=== PATIENT | female | born 1955 | race American Indian/Alaskan Native ===

== ENCOUNTER 2018-07-22 17:17 | Inpatient (IN) | payer SELFPAY ==
--- NOTE | 2018-07-22 18:24 | Emergency Department Report ---
HPI - General Chief Complaint: Syncope Time Seen by Provider: 07/22/18 18:12 - HPI HPI: This is a 63-year-old -[place] female who presents to the ED with the chief complaint of syncope. Patient states about an hour ago she was eating dinner and that was the last thing she remembered. Family member states she passed out, and remained unconscious from 30 seconds to a minute, but no loss of bowel or urine, no focal or generalized seizure activity. When patient returned to consciousness she denied any presyncopal palpitations, chest pain, shortness of breath, dizziness. She is back to her baseline. ED Past Medical Hx - Past Medical History Hx Hypertension: Yes Hx Seizures: Yes - Surgical History Past Surgical History?: No - Medications Home Medications: Home Medications Medication Instructions Recorded Confirmed Last Taken Type Aspirin EC [Aspirin Enteric Coated 81 mg PO QDAY 07/22/18 07/22/18 Unknown History TAB] ED Review of Systems ROS: Stated complaint: UNRESPONSIVE EPISODE Other details as noted in HPI Comment: All other systems reviewed and negative Constitutional: denies: chills, fever Eyes: denies: eye pain, eye discharge, vision change ENT: denies: ear pain, throat pain Respiratory: denies: cough, shortness of breath, wheezing Cardiovascular: denies: chest pain, palpitations Endocrine: no symptoms reported Gastrointestinal: denies: abdominal pain, nausea, diarrhea Genitourinary: denies: urgency, dysuria, discharge Musculoskeletal: denies: back pain, joint swelling, arthralgia Skin: denies: rash, lesions Neurological: other (syncope). denies: headache, weakness, paresthesias Psychiatric: denies: anxiety, depression Hematological/Lymphatic: denies: easy bleeding, easy bruising Physical Exam - Physical Exam Vital Signs: Vital Signs 07/22/18 17:57 Temperature 98.5 F Pulse Rate 82 Respiratory 20 Rate Blood Pressure 149/74 [Right] Physical Exam: - General Limitations: No Limitations General appearance: alert, in no apparent distress - Head Head exam: Present: atraumatic, normocephalic - Eye Eye exam: Present: normal appearance - ENT ENT exam: Present: mucous membranes moist - Neck Neck exam: Present: normal inspection - Respiratory Respiratory exam: Present: normal lung sounds bilaterally. Absent: respiratory distress - Cardiovascular Cardiovascular Exam: Present: regular rate, normal rhythm. Absent: systolic murmur, diastolic murmur, rubs, gallop - GI/Abdominal GI/Abdominal exam: Present: soft, normal bowel sounds - Extremities Exam Extremities exam: Present: normal inspection - Back Exam Back exam: Present: normal inspection - Neurological Exam Neurological exam: Present: alert, oriented X3 - Psychiatric Psychiatric exam: Present: normal affect, normal mood - Skin Skin exam: Present: warm, dry, intact, normal color. Absent: rash ED Course Vital Signs 07/22/18 17:57 Temperature 98.5 F Pulse Rate 82 Respiratory 20 Rate Blood Pressure 149/74 [Right] ED Medical Decision Making - Lab Data Result diagrams: 07/22/18 18:08 07/22/18 18:08 - Medical Decision Making She will be admitted for observation for syncope Critical care attestation.: If time is entered above; I have spent that time in minutes in the direct care of this critically ill patient, excluding procedure time. ED Disposition Clinical Impression: Syncope and collapse Disposition: DC-09 OP ADMIT IP TO THIS HOSP Is pt being admited?: Yes Does the pt Need Aspirin: No Condition: Stable
[2018-07-22 18:35] LABS: INR 0.99 (0.87-1.13)
[2018-07-22 18:39] LABS: Creatine Kinase MB 23.3 ng/mL (0.0-4.0)
[2018-07-22 18:43] LABS: Hemoglobin 14.8 gm/dl (10.1-14.3); Mean Corpuscular HGB Conc 35 % (30-34); Mean Corpuscular Volume 95 fl (79-97); Platelet Count 301 K/mm3 (140-440); Red Blood Count 4.53 M/mm3 (3.65-5.03); Red Cell Distribution Width 13.8 % (13.2-15.2)
[2018-07-22 18:50] LABS: Alanine Aminotransferase 43 units/L (7-56); BUN/Creatinine Ratio 16; Blood Urea Nitrogen 13 mg/dL (7-17); Calcium 8.8 mg/dL (8.4-10.2); Hemolysis Index 13
[2018-07-22 19:36] LABS: Total Cells Counted 100
[2018-07-22 19:37] LABS: Ovalocytes Few
--- NOTE | 2018-07-22 19:58 | Cat Scan Report ---
PROCEDURE: CT HEAD/BRAIN WO CON TECHNIQUE: CT head without contrast HISTORY: Syncope COMPARISONS: FINDINGS: There is patchy hypodensity in the supratentorial white matter most consistent with chronic small ves linda ischemic change. Ventricles and sulci are within normal limits. No acute intra or extra-axial hem orrhage identified. No evidence for midline shift or mass effect. IMPRESSION: Chronic small vessel ischemic changes Otherwise negative study.. This document is electronically signed by Zion Page MD., July 22 2018 07:56:13 PM ET
[2018-07-22 20:25] LABS: Bilirubin,Urine NEG (Negative); Blood,Urine NEG (Negative); Color,Urine Yellow (Yellow); Mucus,Urine FEW /HPF; Protein,Urine <15 mg/dL mg/dL (Negative); Urobilinogen,Urine < 2.0 mg/dL (<2.0); WBC,Urine < 1.0 /HPF (0.0-6.0)
[2018-07-22 20:33] LABS: Amphetamine Screen,Urine PRESUMPTIVE NEGATIVE; Benzodiazepines Screen,Urine PRESUMPTIVE NEGATIVE; Cannabinoid Screen,Urine PRESUMPTIVE NEGATIVE; Methadone Screen,Urine PRESUMPTIVE NEGATIVE; Opiate Screen,Urine PRESUMPTIVE NEGATIVE
[2018-07-22 20:44] LABS: Cocaine Screen,Urine PRESUMPTIVE POSITIVE
[2018-07-22] MEDS ORDERED: TYLENOL PO PRN (22:16)
[2018-07-22] MEDS ORDERED: SODIUM CHLORIDE FLUSH SYRINGE 10 ML IV PRN ×2 (22:16→22:43)
[2018-07-22] MEDS ORDERED: ZOFRAN IV PRN (22:16)
--- NOTE | 2018-07-22 22:23 | History and Physical Report ---
<BENJI GRAHAM - Last Filed: 07/23/18 01:25> History of Present Illness Date of examination: 07/22/18 Date of admission: 02/02/2019 Chief complaint: Syncope History of present illness: Patient is a 63-year-old female with PMHx of HTN, HIV who presents to the ER with complaint of syncope. Patient states that she was in the mild to her friend's house, when her vitamins and gave her some knee she took the first night and became unresponsive, her friends tried to wake her up, applied cold border on her face, she was still, her friend called EMS. Patient states that she had the same episode in August last year. Per EMS patient was unresponsive for about 10 minutes prior to coming to the. Patient denies any report of bowel and bladder incontinence, she denied any seizure activities, denied headache, denied or disorientation or confusion. Patient denies history of heart disease or neurological disorder, denies palpitations, denies chest pain, denies shortness of breath, denies dizziness. Pt was awake alert and oriented in the ER upon admission. Past History Past Medical History: HIV/AIDS, hypertension Past Surgical History: No surgical history Social history: no significant social history Medications and Allergies Allergies Allergy/AdvReac Type Severity Reaction Status Date / Time No Known Allergies Allergy Unverified 07/22/18 17:39 Home Medications Medication Instructions Recorded Confirmed Last Taken Type Aspirin EC [Aspirin Enteric Coated 81 mg PO QDAY 07/22/18 07/22/18 Unknown History TAB] Active Meds: Active Medications Acetaminophen (Tylenol) 650 mg PO Q4H PRN PRN Reason: Pain MILD(1-3)/Fever >100.5/CAMPUZANO Ondansetron HCl (Zofran) 4 mg IV Q8H PRN PRN Reason: Nausea And Vomiting Sodium Chloride (Sodium Chloride Flush Syringe 10 Ml) 10 ml IV BID JEF Sodium Chloride (Sodium Chloride Flush Syringe 10 Ml) 10 ml IV PRN PRN PRN Reason: LINE FLUSH Exam - Constitutional Vitals: Temp Pulse Resp BP Pulse Ox 98.2 F 82 20 149/74 07/22/18 18:33 07/22/18 17:57 07/22/18 17:57 07/22/18 17:57 General appearance: Present: no acute distress - EENT Eyes: Present: EOM intact ENT: hearing intact - Neck Neck: Present: normal ROM - Respiratory Respiratory effort: normal Respiratory: bilateral: CTA - Cardiovascular Rhythm: regular - Extremities Extremities: no ischemia Peripheral Pulses: within normal limits - Abdominal General gastrointestinal: Present: soft, non-tender, non-distended Female genitourinary: Present: deferred - Rectal Rectal Exam: deferred - Integumentary Integumentary: Present: warm, dry - Musculoskeletal Musculoskeletal: strength equal bilaterally - Psychiatric Psychiatric: cooperative - Neurologic Neurologic: moves all extremities Results - Labs CBC & Chem 7: 07/22/18 23:31 07/22/18 23:31 Labs: Laboratory Last Values WBC 9.7 K/mm3 (4.5-11.0) 07/22/18 18:08 RBC 4.53 M/mm3 (3.65-5.03) 07/22/18 18:08 Hgb 14.8 gm/dl (10.1-14.3) H 07/22/18 18:08 Hct 43.0 % (30.3-42.9) H 07/22/18 18:08 MCV 95 fl (79-97) 07/22/18 18:08 MCH 33 pg (28-32) H 07/22/18 18:08 MCHC 35 % (30-34) H 07/22/18 18:08 RDW 13.8 % (13.2-15.2) 07/22/18 18:08 Plt Count 301 K/mm3 (140-440) 07/22/18 18:08 Add Manual Diff Complete 07/22/18 18:08 Total Counted 100 07/22/18 18:08 Seg Neuts % (Manual) 79.0 % (40.0-70.0) H 07/22/18 18:08 Band Neutrophils % 0 % 07/22/18 18:08 Lymphocytes % (Manual) 12.0 % (13.4-35.0) L 07/22/18 18:08 Reactive Lymphs % (Man) 0 % 07/22/18 18:08 Monocytes % (Manual) 7.0 % (0.0-7.3) 07/22/18 18:08 Eosinophils % (Manual) 1.0 % (0.0-4.3) 07/22/18 18:08 Basophils % (Manual) 1.0 % (0.0-1.8) 07/22/18 18:08 Metamyelocytes % 0 % 07/22/18 18:08 Myelocytes % 0 % 07/22/18 18:08 Promyelocytes % 0 % 07/22/18 18:08 Blast Cells % 0 % 07/22/18 18:08 Nucleated RBC % Not Reportable 07/22/18 18:08 Seg Neutrophils # Man 7.7 K/mm3 (1.8-7.7) 07/22/18 18:08 Band Neutrophils # 0.0 K/mm3 07/22/18 18:08 Lymphocytes # (Manual) 1.2 K/mm3 (1.2-5.4) 07/22/18 18:08 Abs React Lymphs (Man) 0.0 K/mm3 07/22/18 18:08 Monocytes # (Manual) 0.7 K/mm3 (0.0-0.8) 07/22/18 18:08 Eosinophils # (Manual) 0.1 K/mm3 (0.0-0.4) 07/22/18 18:08 Basophils # (Manual) 0.1 K/mm3 (0.0-0.1) 07/22/18 18:08 Metamyelocytes # 0.0 K/mm3 07/22/18 18:08 Myelocytes # 0.0 K/mm3 07/22/18 18:08 Promyelocytes # 0.0 K/mm3 07/22/18 18:08 Blast Cells # 0.0 K/mm3 07/22/18 18:08 WBC Morphology Not Reportable 07/22/18 18:08 Hypersegmented Neuts Not Reportable 07/22/18 18:08 Hyposegmented Neuts Not Reportable 07/22/18 18:08 Hypogranular Neuts Not Reportable 07/22/18 18:08 Smudge Cells Not Reportable 07/22/18 18:08 Toxic Granulation Not Reportable 07/22/18 18:08 Toxic Vacuolation Not Reportable 07/22/18 18:08 Dohle Bodies Not Reportable 07/22/18 18:08 Pelger-Huet Anomaly Not Reportable 07/22/18 18:08 Teofilo Rods Not Reportable 07/22/18 18:08 Platelet Estimate Appears normal 07/22/18 18:08 Clumped Platelets Not Reportable 07/22/18 18:08 Plt Clumps, EDTA Not Reportable 07/22/18 18:08 Large Platelets Not Reportable 07/22/18 18:08 Giant Platelets Not Reportable 07/22/18 18:08 Platelet Satelliting Not Reportable 07/22/18 18:08 Plt Morphology Comment Not Reportable 07/22/18 18:08 RBC Morphology Not Reportable 07/22/18 18:08 Dimorphic RBCs Not Reportable 07/22/18 18:08 Polychromasia Not Reportable 07/22/18 18:08 Hypochromasia Not Reportable 07/22/18 18:08 Poikilocytosis Not Reportable 07/22/18 18:08 Anisocytosis Not Reportable 07/22/18 18:08 Microcytosis Not Reportable 07/22/18 18:08 Macrocytosis Not Reportable 07/22/18 18:08 Spherocytes Not Reportable 07/22/18 18:08 Pappenheimer Bodies Not Reportable 07/22/18 18:08 Sickle Cells Not Reportable 07/22/18 18:08 Target Cells Not Reportable 07/22/18 18:08 Tear Drop Cells Not Reportable 07/22/18 18:08 Ovalocytes Few 07/22/18 18:08 Helmet Cells Not Reportable 07/22/18 18:08 [place] Bodies Not Reportable 07/22/18 18:08 [place] Rings Not Reportable 07/22/18 18:08 Rita Cells Not Reportable 07/22/18 18:08 Bite Cells Not Reportable 07/22/18 18:08 Crenated Cell Not Reportable 07/22/18 18:08 Elliptocytes Not Reportable 07/22/18 18:08 Acanthocytes (Spur) Not Reportable 07/22/18 18:08 Rouleaux Not Reportable 07/22/18 18:08 Hemoglobin C Crystals Not Reportable 07/22/18 18:08 Schistocytes Not Reportable 07/22/18 18:08 Malaria parasites Not Reportable 07/22/18 18:08 Ramírez Bodies Not Reportable 07/22/18 18:08 Hem Pathologist Commnt No 07/22/18 18:08 PT 13.7 Sec. (12.2-14.9) 07/22/18 18:08 INR 0.99 (0.87-1.13) 07/22/18 18:08 Sodium 133 mmol/L (137-145) L 07/22/18 18:08 Potassium 3.8 mmol/L (3.6-5.0) 07/22/18 18:08 Chloride 93.4 mmol/L (98-107) L 07/22/18 18:08 Carbon Dioxide 22 mmol/L (22-30) 07/22/18 18:08 Anion Gap 21 mmol/L 07/22/18 18:08 BUN 13 mg/dL (7-17) 07/22/18 18:08 Creatinine 0.8 mg/dL (0.7-1.2) 07/22/18 18:08 Estimated GFR > 60 ml/min 07/22/18 18:08 BUN/Creatinine Ratio 16 % 07/22/18 18:08 Glucose 107 mg/dL (65-100) H 07/22/18 18:08 POC Glucose 89 (70-105) 07/22/18 18:10 Calcium 8.8 mg/dL (8.4-10.2) 07/22/18 18:08 Magnesium 2.00 mg/dL (1.7-2.3) 07/22/18 18:08 Total Bilirubin 1.00 mg/dL (0.1-1.2) 07/22/18 18:08 AST 142 units/L (5-40) H 07/22/18 18:08 ALT 43 units/L (7-56) 07/22/18 18:08 Alkaline Phosphatase 95 units/L (35-129) 07/22/18 18:08 Total Creatine Kinase 5316 units/L (30-135) H 07/22/18 18:08 CK-MB (CK-2) 23.3 ng/mL (0.0-4.0) H 07/22/18 18:08 CK-MB (CK-2) Rel Index 0.4 (0-4) 07/22/18 18:08 Troponin T < 0.010 ng/mL (0.00-0.029) 07/22/18 18:08 NT-Pro-B Natriuret Pep 410.7 pg/mL (0-900) 07/22/18 20:48 Total Protein 7.3 g/dL (6.3-8.2) 07/22/18 18:08 Albumin 4.0 g/dL (3.9-5) 07/22/18 18:08 Albumin/Globulin Ratio 1.2 % 07/22/18 18:08 Urine Color Yellow (Yellow) 07/22/18 20:09 Urine Turbidity Clear (Clear) 07/22/18 20:09 Urine pH 5.0 (5.0-7.0) 07/22/18 20:09 Ur Specific [place] 1.005 (1.003-1.030) 07/22/18 20:09 Urine Protein <15 mg/dl mg/dL (Negative) 07/22/18 20:09 Urine Glucose (UA) Neg mg/dL (Negative) 07/22/18 20:09 Urine Ketones Tr mg/dL (Negative) 07/22/18 20:09 Urine Blood Neg (Negative) 07/22/18 20:09 Urine Nitrite Neg (Negative) 07/22/18 20:09 Urine Bilirubin Neg (Negative) 07/22/18 20:09 Urine Urobilinogen < 2.0 mg/dL (<2.0) 07/22/18 20:09 Ur Leukocyte Esterase Neg (Negative) 07/22/18 20:09 Urine WBC (Auto) < 1.0 /HPF (0.0-6.0) 07/22/18 20:09 Urine RBC (Auto) 2.0 /HPF (0.0-6.0) 07/22/18 20:09 U Epithel Cells (Auto) < 1.0 /HPF (0-13.0) 07/22/18 20:09 Urine Mucus Few /HPF 07/22/18 20:09 Urine Opiates Screen Presumptive negative 07/22/18 20:09 Urine Methadone Screen Presumptive negative 07/22/18 20:09 Ur Barbiturates Screen Presumptive negative 07/22/18 20:09 Ur Phencyclidine Scrn Presumptive negative 07/22/18 20:09 Ur Amphetamines Screen Presumptive negative 07/22/18 20:09 U Benzodiazepines Scrn Presumptive negative 07/22/18 20:09 Urine Cocaine Screen Presumptive positive 07/22/18 20:09 U Marijuana (THC) Screen Presumptive negative 07/22/18 20:09 Drugs of Abuse Note Disclamer 07/22/18 20:09 Plasma/Serum Alcohol < 0.01 % (0-0.07) 07/22/18 18:08 Assessment and Plan Assessment and plan: 1. Acute syncopal episode 2. Hypertension 3. HIV infection (On HAART) Plan: Admit to [facility] Monitor neurologic status Continue cardiac enzymes every 6 hours 2 Consult cardiology for syncope Echocardiogram in the a.m. Resume home medications Advance Directives: Yes VTE prophylaxis?: Mechanical Plan of care discussed with patient/family: Yes <JONE CASAS - Last Filed: 07/23/18 01:36> History of Present Illness Date of admission: 07/22/18 22:16 Medications and Allergies Active Meds: Active Medications Acetaminophen (Tylenol) 650 mg PO Q4H PRN PRN Reason: Pain MILD(1-3)/Fever >100.5/CAMPUZANO Aspirin (Ecotrin) 325 mg PO QDAY JEF Enoxaparin Sodium (Lovenox) 30 mg SUB-Q QDAY JEF Ondansetron HCl (Zofran) 4 mg IV Q8H PRN PRN Reason: Nausea And Vomiting Sodium Chloride (Sodium Chloride Flush Syringe 10 Ml) 10 ml IV BID JEF Sodium Chloride (Sodium Chloride Flush Syringe 10 Ml) 10 ml IV PRN PRN PRN Reason: LINE FLUSH Exam - Constitutional Vitals: Temp Pulse Resp BP Pulse Ox 98.2 F 79 19 112/68 07/22/18 18:33 07/22/18 21:00 07/22/18 21:00 07/22/18 21:00 Results - Labs CBC & Chem 7: 07/22/18 23:31 07/22/18 23:31 Labs: Laboratory Last Values WBC 9.9 K/mm3 (4.5-11.0) 07/22/18 23:31 RBC 4.24 M/mm3 (3.65-5.03) 07/22/18 23:31 Hgb 13.9 gm/dl (10.1-14.3) 07/22/18 23:31 Hct 40.0 % (30.3-42.9) 07/22/18 23:31 MCV 94 fl (79-97) 07/22/18 23:31 MCH 33 pg (28-32) H 07/22/18 23:31 MCHC 35 % (30-34) H 07/22/18 23:31 RDW 13.6 % (13.2-15.2) 07/22/18 23:31 Plt Count 282 K/mm3 (140-440) 07/22/18 23:31 Add Manual Diff Complete 07/22/18 18:08 Total Counted 100 07/22/18 18:08 Seg Neuts % (Manual) 79.0 % (40.0-70.0) H 07/22/18 18:08 Band Neutrophils % 0 % 07/22/18 18:08 Lymphocytes % (Manual) 12.0 % (13.4-35.0) L 07/22/18 18:08 Reactive Lymphs % (Man) 0 % 07/22/18 18:08 Monocytes % (Manual) 7.0 % (0.0-7.3) 07/22/18 18:08 Eosinophils % (Manual) 1.0 % (0.0-4.3) 07/22/18 18:08 Basophils % (Manual) 1.0 % (0.0-1.8) 07/22/18 18:08 Metamyelocytes % 0 % 07/22/18 18:08 Myelocytes % 0 % 07/22/18 18:08 Promyelocytes % 0 % 07/22/18 18:08 Blast Cells % 0 % 07/22/18 18:08 Nucleated RBC % Not Reportable 07/22/18 18:08 Seg Neutrophils # Man 7.7 K/mm3 (1.8-7.7) 07/22/18 18:08 Band Neutrophils # 0.0 K/mm3 07/22/18 18:08 Lymphocytes # (Manual) 1.2 K/mm3 (1.2-5.4) 07/22/18 18:08 Abs React Lymphs (Man) 0.0 K/mm3 07/22/18 18:08 Monocytes # (Manual) 0.7 K/mm3 (0.0-0.8) 07/22/18 18:08 Eosinophils # (Manual) 0.1 K/mm3 (0.0-0.4) 07/22/18 18:08 Basophils # (Manual) 0.1 K/mm3 (0.0-0.1) 07/22/18 18:08 Metamyelocytes # 0.0 K/mm3 07/22/18 18:08 Myelocytes # 0.0 K/mm3 07/22/18 18:08 Promyelocytes # 0.0 K/mm3 07/22/18 18:08 Blast Cells # 0.0 K/mm3 07/22/18 18:08 WBC Morphology Not Reportable 07/22/18 18:08 Hypersegmented Neuts Not Reportable 07/22/18 18:08 Hyposegmented Neuts Not Reportable 07/22/18 18:08 Hypogranular Neuts Not Reportable 07/22/18 18:08 Smudge Cells Not Reportable 07/22/18 18:08 Toxic Granulation Not Reportable 07/22/18 18:08 Toxic Vacuolation Not Reportable 07/22/18 18:08 Dohle Bodies Not Reportable 07/22/18 18:08 Pelger-Huet Anomaly Not Reportable 07/22/18 18:08 Teofilo Rods Not Reportable 07/22/18 18:08 Platelet Estimate Appears normal 07/22/18 18:08 Clumped Platelets Not Reportable 07/22/18 18:08 Plt Clumps, EDTA Not Reportable 07/22/18 18:08 Large Platelets Not Reportable 07/22/18 18:08 Giant Platelets Not Reportable 07/22/18 18:08 Platelet Satelliting Not Reportable 07/22/18 18:08 Plt Morphology Comment Not Reportable 07/22/18 18:08 RBC Morphology Not Reportable 07/22/18 18:08 Dimorphic RBCs Not Reportable 07/22/18 18:08 Polychromasia Not Reportable 07/22/18 18:08 Hypochromasia Not Reportable 07/22/18 18:08 Poikilocytosis Not Reportable 07/22/18 18:08 Anisocytosis Not Reportable 07/22/18 18:08 Microcytosis Not Reportable 07/22/18 18:08 Macrocytosis Not Reportable 07/22/18 18:08 Spherocytes Not Reportable 07/22/18 18:08 Pappenheimer Bodies Not Reportable 07/22/18 18:08 Sickle Cells Not Reportable 07/22/18 18:08 Target Cells Not Reportable 07/22/18 18:08 Tear Drop Cells Not Reportable 07/22/18 18:08 Ovalocytes Few 07/22/18 18:08 Helmet Cells Not Reportable 07/22/18 18:08 [place] Bodies Not Reportable 07/22/18 18:08 [place] Rings Not Reportable 07/22/18 18:08 [place] Cells Not Reportable 07/22/18 18:08 Bite Cells Not Reportable 07/22/18 18:08 Crenated Cell Not Reportable 07/22/18 18:08 Elliptocytes Not Reportable 07/22/18 18:08 Acanthocytes (Spur) Not Reportable 07/22/18 18:08 Rouleaux Not Reportable 07/22/18 18:08 Hemoglobin C Crystals Not Reportable 07/22/18 18:08 Schistocytes Not Reportable 07/22/18 18:08 Malaria parasites Not Reportable 07/22/18 18:08 Ramírez Bodies Not Reportable 07/22/18 18:08 Hem Pathologist Commnt No 07/22/18 18:08 PT 13.7 Sec. (12.2-14.9) 07/22/18 18:08 INR 0.99 (0.87-1.13) 07/22/18 18:08 Sodium 135 mmol/L (137-145) L 07/22/18 23:31 Potassium 3.8 mmol/L (3.6-5.0) 07/22/18 23:31 Chloride 97.7 mmol/L (98-107) L 07/22/18 23:31 Carbon Dioxide 25 mmol/L (22-30) 07/22/18 23:31 Anion Gap 16 mmol/L 07/22/18 23:31 BUN 12 mg/dL (7-17) 07/22/18 23:31 Creatinine 0.7 mg/dL (0.7-1.2) 07/22/18 23:31 Estimated GFR > 60 ml/min 07/22/18 23:31 BUN/Creatinine Ratio 17 % 07/22/18 23:31 Glucose 138 mg/dL (65-100) H 07/22/18 23:31 POC Glucose 89 (70-105) 07/22/18 18:10 Calcium 8.8 mg/dL (8.4-10.2) 07/22/18 23:31 Magnesium 2.00 mg/dL (1.7-2.3) 07/22/18 18:08 Total Bilirubin 1.00 mg/dL (0.1-1.2) 07/22/18 18:08 AST 142 units/L (5-40) H 07/22/18 18:08 ALT 43 units/L (7-56) 07/22/18 18:08 Alkaline Phosphatase 95 units/L (35-129) 07/22/18 18:08 Total Creatine Kinase 5316 units/L (30-135) H 07/22/18 18:08 CK-MB (CK-2) 23.3 ng/mL (0.0-4.0) H 07/22/18 18:08 CK-MB (CK-2) Rel Index 0.4 (0-4) 07/22/18 18:08 Troponin T < 0.010 ng/mL (0.00-0.029) 07/22/18 18:08 NT-Pro-B Natriuret Pep 410.7 pg/mL (0-900) 07/22/18 20:48 Total Protein 7.3 g/dL (6.3-8.2) 07/22/18 18:08 Albumin 4.0 g/dL (3.9-5) 07/22/18 18:08 Albumin/Globulin Ratio 1.2 % 07/22/18 18:08 Urine Color Yellow (Yellow) 07/22/18 20:09 Urine Turbidity Clear (Clear) 07/22/18 20:09 Urine pH 5.0 (5.0-7.0) 07/22/18 20:09 Ur Specific [place] 1.005 (1.003-1.030) 07/22/18 20:09 Urine Protein <15 mg/dl mg/dL (Negative) 07/22/18 20:09 Urine Glucose (UA) Neg mg/dL (Negative) 07/22/18 20:09 Urine Ketones Tr mg/dL (Negative) 07/22/18 20:09 Urine Blood Neg (Negative) 07/22/18 20:09 Urine Nitrite Neg (Negative) 07/22/18 20:09 Urine Bilirubin Neg (Negative) 07/22/18 20:09 Urine Urobilinogen < 2.0 mg/dL (<2.0) 07/22/18 20:09 Ur Leukocyte Esterase Neg (Negative) 07/22/18 20:09 Urine WBC (Auto) < 1.0 /HPF (0.0-6.0) 07/22/18 20:09 Urine RBC (Auto) 2.0 /HPF (0.0-6.0) 07/22/18 20:09 U Epithel Cells (Auto) < 1.0 /HPF (0-13.0) 07/22/18 20:09 Urine Mucus Few /HPF 07/22/18 20:09 Urine Opiates Screen Presumptive negative 07/22/18 20:09 Urine Methadone Screen Presumptive negative 07/22/18 20:09 Ur Barbiturates Screen Presumptive negative 07/22/18 20:09 Ur Phencyclidine Scrn Presumptive negative 07/22/18 20:09 Ur Amphetamines Screen Presumptive negative 07/22/18 20:09 U Benzodiazepines Scrn Presumptive negative 07/22/18 20:09 Urine Cocaine Screen Presumptive positive 07/22/18 20:09 U Marijuana (THC) Screen Presumptive negative 07/22/18 20:09 Drugs of Abuse Note Disclamer 07/22/18 20:09 Plasma/Serum Alcohol < 0.01 % (0-0.07) 07/22/18 18:08 Assessment and Plan Assessment and plan: Patient seen and examined with nurse practitioner . 63-year-old woman with a history of hypertension, HIV, on ulcerative for con, similar emergency room because she had a syncopal episode while she was eating at a friend's house. She states she do not know how long she passed out for. She states that several episodes of syncope starting last year, at least 6 episodes, unclear what her workup has been, she cannot recall. Her physical exam is benign. Agree with plan as discussed above, in addition check carotid Doppler, orthostatics, d-dimer
[2018-07-23 00:07] LABS: BUN/Creatinine Ratio 17; Blood Urea Nitrogen 12 mg/dL (7-17); Calcium 8.8 mg/dL (8.4-10.2); Hemolysis Index 7
[2018-07-23 00:24] LABS: Red Cell Distribution Width 13.6 % (13.2-15.2)
[2018-07-23 00:28] LABS: Hemoglobin 13.9 gm/dl (10.1-14.3); Mean Corpuscular HGB Conc 35 % (30-34); Mean Corpuscular Volume 94 fl (79-97); Platelet Count 282 K/mm3 (140-440); Red Blood Count 4.24 M/mm3 (3.65-5.03)
[2018-07-23 01:48] LABS: Basophils % (Manual) 0 % (0.0-1.8); Eosinophils % (Manual) 0 % (0.0-4.3); Total Cells Counted 100
[2018-07-23 01:49] LABS: Platelet Estimate Consistent w Auto; RBC Morphology Normal
[2018-07-23 03:27] LABS: Creatine Kinase MB 14.8 ng/mL (0.0-4.0)
[2018-07-23] MEDS: LOVENOX SUB-Q SCH (10:50)
[2018-07-23] MEDS: SODIUM CHLORIDE FLUSH SYRINGE 10 ML IV SCH ×2 (10:50→22:07)
[2018-07-23] MEDS: ECOTRIN PO SCH (10:50)
[2018-07-23 11:29] LABS: Creatine Kinase MB 12.4 ng/mL (0.0-4.0)
--- NOTE | 2018-07-23 12:36 | Vascular Lab Report ---
PROCEDURE: VL CAROTID DUPLEX BILAT TECHNIQUE: Duplex Doppler ultrasound of the common, internal and external carotid arteries and the v ertebral arteries was performed bilaterally. Porter scale imaging, velocity spectral waveform analysis, and color flow Doppler were employed. HISTORY: syncope COMPARISONS: None . Note: Measurement of carotid stenosis is based on flow velocity values that correlate with the [place] Symptomatic Carotid Endarterectomy Trial (NASCET) based stenosis criteria using the internal carotid artery diameter as the denominator for stenosis calculation. FINDINGS: RIGHT carotid artery: Velocities Pamela L Velocities: ICA PSV: 80 cm/sec ICA End diastolic: 21 cm/sec CCA PSV: 91 cm/sec IC/CC ratio: 0.88 Plaque/color flow: Mild heterogeneous plaque without significant spectral broadening or abnormal col or flow . RIGHT vertebral artery: Antegrade systolic and diastolic flow LEFT carotid artery: Velocities: ICA PSV: 99 cm/sec ICA End diastolic: 28 cm/sec CCA PSV: 129 cm/sec IC/CC ratio: 0.7 7 Plaque/color flow: Mild heterogeneous plaque without significant spectral broadening or abnormal col or flow . LEFT vertebral artery: Antegrade systolic and diastolic flow IMPRESSION: 1. RIGHT carotid: No hemodynamically significant (less than 50 percent) internal carotid artery kimani nosis. 2. LEFT carotid: No hemodynamically significant (less than 50 percent) internal carotid artery sten osis. 3. Vertebral arteries: Bilaterally antegrade. This document is electronically signed by Wolfgang Kirkland MD., July 23 2018 12:34:44 PM ET
--- NOTE | 2018-07-23 12:38 | Consultation ---
History of Present Illness Consult date: 07/23/18 Requesting physician: BENJI GRAHAM Consult reason: syncope History of present illness: Over the past one year, she has been experiencing recurrent episodes of loss of consciousness without premonitory symptoms. She claims that she has had a total of 7 episodes since onset. Yesterday, while attending a barbecue at her friend's place, without any warning signs, she suddenly lost consciousness. She does not recall any details of the event. She first started arousing when she was in the ambulance. Upon arousal, she had no symptoms of palpitations, dyspnea, chest pain, or dizziness. She claims that each episode is accompanied by urinary incontinence with a similar pattern as yesterday. There is no descr iption of tonic-clonic movements. She claims that she has not had any prior evaluation for these events. She believes that she was brought to the hospital yesterday because the duration of LOC was somewhat longer. Brain CT scan showed no acute findings. D-Dimer is elevated. Past History Past Medical History: HIV/AIDS, hypertension Past Surgical History: No surgical history Social history: smoking, other (Drinks alcohol occasionally.) Family history: denies: CAD Medications and Allergies Allergies Allergy/AdvReac Type Severity Reaction Status Date / Time No Known Allergies Allergy Unverified 07/22/18 17:39 Home Medications Medication Instructions Recorded Confirmed Last Taken Type Aspirin EC [Aspirin Enteric Coated 81 mg PO QDAY 07/22/18 07/22/18 Unknown History TAB] Active Meds: Active Medications Acetaminophen (Tylenol) 650 mg PO Q4H PRN PRN Reason: Pain MILD(1-3)/Fever >100.5/CAMPUZANO Aspirin (Ecotrin) 325 mg PO QDAY [facility] Last Admin: 07/23/18 10:50 Dose: 325 mg Documented by: Enoxaparin Sodium (Lovenox) 40 mg SUB-Q QDAY [facility] Last Admin: 07/23/18 10:50 Dose: 40 mg Documented by: Ondansetron HCl (Zofran) 4 mg IV Q8H PRN PRN Reason: Nausea And Vomiting Sodium Chloride (Sodium Chloride Flush Syringe 10 Ml) 10 ml IV BID [facility] Last Admin: 07/23/18 10:50 Dose: 10 ml Documented by: Sodium Chloride (Sodium Chloride Flush Syringe 10 Ml) 10 ml IV PRN PRN PRN Reason: LINE FLUSH Review of Systems Constitutional: no fever, no chills Ears, nose, mouth and throat: no ear pain, no ear discharge, no sore throat Cardiovascular: syncope, no chest pain, no orthopnea, no palpitations, no lightheadedness, no shortness of breath Respiratory: no cough, no hemoptysis, no shortness of breath Gastrointestinal: no abdominal pain, no nausea, no vomiting, no diarrhea, no constipation, no change in bowel habits Genitourinary Female: no dysuria, no urinary frequency Rectal: no pain, no bleeding Musculoskeletal: no neck stiffness, no neck pain, no myalgias Integumentary: no rash, no pruritis Neurological: no paralysis, no weakness, no headaches Endocrine: no cold intolerance, no heat intolerance Hematologic/Lymphatic: no easy bruising, no easy bleeding Allergic/Immunologic: no urticaria, no wheezing Physical Examination Vital Signs Last Vital Signs Temp 98.6 F 07/23/18 08:42 Pulse 67 07/23/18 10:00 Resp 18 07/23/18 10:00 BP 146/68 07/23/18 08:42 Pulse Ox 98 07/23/18 10:00 General appearance: no acute distress HEENT: Positive: EOMI, Normocephaly, Mucus Membranes Moist Neck: Positive: neck supple, trachea midline Cardiac: Positive: Reg Rate and Rhythm, S1/S2 Lungs: Positive: clear to auscultation Neuro: Positive: Grossly Intact Abdomen: Positive: Soft, Active Bowel Sounds. Negative: Tender Skin: Positive: Clear. Negative: Rash Musculoskeletal: Normal Range of Motion Extremities: Present: normal. Absent: edema Results 07/22/18 23:31 07/22/18 23:31 Cardiac Enzymes 07/22/18 07/22/18 07/23/18 Range/Units 18:08 18:08 01:57 AST 142 H (5-40) units/L CK-MB (CK-2) 23.3 H 14.8 H (0.0-4.0) ng/mL 07/23/18 Range/Units 10:19 AST (5-40) units/L CK-MB (CK-2) 12.4 H (0.0-4.0) ng/mL Coagulation 07/22/18 Range/Units 18:08 PT 13.7 (12.2-14.9) Sec. INR 0.99 (0.87-1.13) CBC 07/22/18 07/22/18 Range/Units 18:08 23:31 WBC 9.7 9.9 (4.5-11.0) K/mm3 RBC 4.53 4.24 (3.65-5.03) M/mm3 Hgb 14.8 H 13.9 (10.1-14.3) gm/dl Hct 43.0 H 40.0 (30.3-42.9) % Plt Count 301 282 (140-440) K/mm3 Comprehensive Metabolic Panel 07/22/18 07/22/18 Range/Units 18:08 23:31 Sodium 133 L 135 L (137-145) mmol/L Potassium 3.8 3.8 (3.6-5.0) mmol/L Chloride 93.4 L 97.7 L (98-107) mmol/L Carbon Dioxide 22 25 (22-30) mmol/L BUN 13 12 (7-17) mg/dL Creatinine 0.8 0.7 (0.7-1.2) mg/dL Glucose 107 H 138 H (65-100) mg/dL Calcium 8.8 8.8 (8.4-10.2) mg/dL AST 142 H (5-40) units/L ALT 43 (7-56) units/L Alkaline Phosphatase 95 (35-129) units/L Total Protein 7.3 (6.3-8.2) g/dL Albumin 4.0 (3.9-5) g/dL - Imaging and Cardiology EKG: image reviewed EKG interpretations - Telemetry EKG Rhythm: Sinus Rhythm - EKG Sinus rhythms and dysrhythmias: sinus rhythm Assessment and Plan Obtaining orthostatic parameters. Due to elevated d-dimer, obtain chest CTA. Schedule echocardiogram. If chest CTA is negative, consider Lexiscan stress MPI in am. She will be observed on the monitor for arrhythmias. If cardiac workup is unremarkable, neurologic workup will be considered as outpatient especially with accompanying incontinence described by the patient. Initiate antihypertensive medication. - Patient Problems (1) Recurrent syncope Current Visit: Yes Status: Acute (2) Elevated d-dimer Current Visit: Yes Status: Acute (3) Hypertension Current Visit: Yes Status: Chronic Qualifiers: Hypertension type: essential hypertension Qualified Code(s): I10 - Essential (primary) hypertension (4) HIV disease Current Visit: Yes Status: Chronic
[2018-07-23] MEDS: NORVASC PO SCH (13:59)
--- NOTE | 2018-07-23 17:57 | Progress Note ---
Assessment and Plan Assessment and plan: --Syncope; Patient gives history of recurrent syncopal episodes in the past. No new episodes of syncope since admission, fall precautions Syncope workup in progress, cardiology evaluated, stress test tomorrow Orthostats, physical therapy occupational therapy --Elevated d-dimer is; CTA chest/lower extremity venous Doppler To rule out PE and DVT Continue supportive care --Ongoing tobacco use; smoking cessation nicotine patch as needed --History of alcohol use; strongly advised to quit alcohol intake Monitor for any withdrawal symptoms consider CIWA protocol as needed --DVT prophylaxis; Lovenox Cardiology evaluation and recommendation noted and appreciated Possible discharge in 1-2 days if stable History Interval history: Patient seen and examined medical records reviewed Admitted with syncope, cardiology evaluation noted and appreciated No new episodes of syncope since admission Patient is alert awake oriented Vital signs noted, Elevation of d-dimer check CTA, venous Doppler to rule out PE and DVT Hospitalist Physical - Constitutional Vitals: Temp Pulse Resp BP Pulse Ox 98.9 F 67 16 155/62 97 07/23/18 12:32 07/23/18 13:59 07/23/18 12:32 07/23/18 13:59 07/23/18 12:32 General appearance: Present: no acute distress, well-nourished - EENT Eyes: Present: PERRL, EOM intact - Neck Neck: Present: supple, normal ROM - Respiratory Respiratory effort: normal Respiratory: bilateral: diminished, negative: rales, rhonchi, wheezing - Cardiovascular Rhythm: regular Heart Sounds: Present: S1 & S2 - Extremities Extremities: no ischemia, No edema - Abdominal General gastrointestinal: soft, non-tender, non-distended, normal bowel sounds - Integumentary Integumentary: Present: clear, warm - Psychiatric Psychiatric: appropriate mood/affect, cooperative - Neurologic Neurologic: CNII-XII intact, moves all extremities Results - Labs CBC & Chem 7: 07/22/18 23:31 07/22/18 23:31 Labs: Laboratory Last Values WBC 9.9 K/mm3 (4.5-11.0) 07/22/18 23:31 RBC 4.24 M/mm3 (3.65-5.03) 07/22/18 23:31 Hgb 13.9 gm/dl (10.1-14.3) 07/22/18 23:31 Hct 40.0 % (30.3-42.9) 07/22/18 23: MCV 94 fl (79-97) 07/22/18 23: MCH 33 pg (28-32) H 07/22/18 23: MCHC 35 % (30-34) H 07/22/18 23: RDW 13.6 % (13.2-15.2) 07/22/18 23: Plt Count 282 K/mm3 (140-440) 07/22/18 23: Add Manual Diff Complete 07/22/18 23: Total Counted 100 07/22/18 23: Seg Neuts % (Manual) 67.0 % (40.0-70.0) 07/22/18 23: Band Neutrophils % 0 % 07/22/18 23: Lymphocytes % (Manual) 26.0 % (13.4-35.0) 07/22/18 23: Reactive Lymphs % (Man) 0 % 07/22/18 23: Monocytes % (Manual) 7.0 % (0.0-7.3) 07/22/18 23: Eosinophils % (Manual) 0 % (0.0-4.3) 07/22/18 23: Basophils % (Manual) 0 % (0.0-1.8) 07/22/18 23: Metamyelocytes % 0 % 07/22/18 23: Myelocytes % 0 % 07/22/18 23: Promyelocytes % 0 % 07/22/18 23: Blast Cells % 0 % 07/22/18 23: Nucleated RBC % Not Reportable 07/22/18 23: Seg Neutrophils # Man 6.6 K/mm3 (1.8-7.7) 07/22/18 23: Band Neutrophils # 0.0 K/mm3 07/22/18 23: Lymphocytes # (Manual) 2.6 K/mm3 (1.2-5.4) 07/22/18 23: Abs React Lymphs (Man) 0.0 K/mm3 07/22/18 23: Monocytes # (Manual) 0.7 K/mm3 (0.0-0.8) 07/22/18 23: Eosinophils # (Manual) 0.0 K/mm3 (0.0-0.4) 07/22/18 23:31 Basophils # (Manual) 0.0 K/mm3 (0.0-0.1) 07/22/18 23:31 Metamyelocytes # 0.0 K/mm3 07/22/18 23:31 Myelocytes # 0.0 K/mm3 07/22/18 23:31 Promyelocytes # 0.0 K/mm3 07/22/18 23:31 Blast Cells # 0.0 K/mm3 07/22/18 23:31 WBC Morphology Not Reportable 07/22/18 23:31 Hypersegmented Neuts Not Reportable 07/22/18 23:31 Hyposegmented Neuts Not Reportable 07/22/18 23:31 Hypogranular Neuts Not Reportable 07/22/18 23:31 Smudge Cells Not Reportable 07/22/18 23:31 Toxic Granulation Not Reportable 07/22/18 23:31 Toxic Vacuolation Not Reportable 07/22/18 23:31 Dohle Bodies Not Reportable 07/22/18 23:31 Pelger-Huet Anomaly Not Reportable 07/22/18 23:31 Teofilo Rods Not Reportable 07/22/18 23:31 Platelet Estimate Consistent w auto 07/22/18 23:31 Clumped Platelets Not Reportable 07/22/18 23:31 Plt Clumps, EDTA Not Reportable 07/22/18 23:31 Large Platelets Not Reportable 07/22/18 23:31 Giant Platelets Not Reportable 07/22/18 23:31 Platelet Satelliting Not Reportable 07/22/18 23:31 Plt Morphology Comment Not Reportable 07/22/18 23:31 RBC Morphology Normal 07/22/18 23:31 Dimorphic RBCs Not Reportable 07/22/18 23:31 Polychromasia Not Reportable 07/22/18 23:31 Hypochromasia Not Reportable 07/22/18 23:31 Poikilocytosis Not Reportable 07/22/18 23:31 Anisocytosis Not Reportable 07/22/18 23:31 Microcytosis Not Reportable 07/22/18 23:31 Macrocytosis Not Reportable 07/22/18 23:31 Spherocytes Not Reportable 07/22/18 23:31 Pappenheimer Bodies Not Reportable 07/22/18 23:31 Sickle Cells Not Reportable 07/22/18 23:31 Target Cells Not Reportable 07/22/18 23:31 Tear Drop Cells Not Reportable 07/22/18 23:31 Ovalocytes Not Reportable 07/22/18 23:31 Helmet Cells Not Reportable 07/22/18 23:31 Mcpherson-Webb Bodies Not Reportable 07/22/18 23:31 [place] Rings Not Reportable 07/22/18 23:31 [place] Cells Not Reportable 07/22/18 23:31 Bite Cells Not Reportable 07/22/18 23:31 Crenated Cell Not Reportable 07/22/18 23:31 Elliptocytes Not Reportable 07/22/18 23:31 Acanthocytes (Spur) Not Reportable 07/22/18 23:31 Rouleaux Not Reportable 07/22/18 23:31 Hemoglobin C Crystals Not Reportable 07/22/18 23:31 Schistocytes Not Reportable 07/22/18 23:31 Malaria parasites Not Reportable 07/22/18 23:31 Ramírez Bodies Not Reportable 07/22/18 23:31 Hem Pathologist Commnt No 07/22/18 23:31 PT 13.7 Sec. (12.2-14.9) 07/22/18 18:08 INR 0.99 (0.87-1.13) 07/22/18 18:08 D-Dimer 563.49 ng/mlDDU (0-234) H 07/23/18 01:57 Sodium 135 mmol/L (137-145) L 07/22/18 23:31 Potassium 3.8 mmol/L (3.6-5.0) 07/22/18 23:31 Chloride 97.7 mmol/L (98-107) L 07/22/18 23:31 Carbon Dioxide 25 mmol/L (22-30) 07/22/18 23:31 Anion Gap 16 mmol/L 07/22/18 23:31 BUN 12 mg/dL (7-17) 07/22/18 23:31 Creatinine 0.7 mg/dL (0.7-1.2) 07/22/18 23:31 Estimated GFR > 60 ml/min 07/22/18 23:31 BUN/Creatinine Ratio 17 % 07/22/18 23:31 Glucose 138 mg/dL (65-100) H 07/22/18 23:31 POC Glucose 89 (70-105) 07/22/18 18:10 Calcium 8.8 mg/dL (8.4-10.2) 07/22/18 23:31 Magnesium 2.00 mg/dL (1.7-2.3) 07/22/18 18:08 Total Bilirubin 1.00 mg/dL (0.1-1.2) 07/22/18 18:08 AST 142 units/L (5-40) H 07/22/18 18:08 ALT 43 units/L (7-56) 07/22/18 18:08 Alkaline Phosphatase 95 units/L (35-129) 07/22/18 18:08 Total Creatine Kinase 3943 units/L (30-135) H 07/23/18 10:19 CK-MB (CK-2) 12.4 ng/mL (0.0-4.0) H 07/23/18 10:19 CK-MB (CK-2) Rel Index 0.3 (0-4) 07/23/18 10:19 Troponin T < 0.010 ng/mL (0.00-0.029) 07/23/18 10:19 NT-Pro-B Natriuret Pep 410.7 pg/mL (0-900) 07/22/18 20:48 Total Protein 7.3 g/dL (6.3-8.2) 07/22/18 18:08 Albumin 4.0 g/dL (3.9-5) 07/22/18 18:08 Albumin/Globulin Ratio 1.2 % 07/22/18 18:08 Urine Color Yellow (Yellow) 07/22/18 20:09 Urine Turbidity Clear (Clear) 07/22/18 20:09 Urine pH 5.0 (5.0-7.0) 07/22/18 20:09 Ur Specific [place] 1.005 (1.003-1.030) 07/22/18 20:09 Urine Protein <15 mg/dl mg/dL (Negative) 07/22/18 20:09 Urine Glucose (UA) Neg mg/dL (Negative) 07/22/18 20:09 Urine Ketones Tr mg/dL (Negative) 07/22/18 20:09 Urine Blood Neg (Negative) 07/22/18 20:09 Urine Nitrite Neg (Negative) 07/22/18 20:09 Urine Bilirubin Neg (Negative) 07/22/18 20:09 Urine Urobilinogen < 2.0 mg/dL (<2.0) 07/22/18 20:09 Ur Leukocyte Esterase Neg (Negative) 07/22/18 20:09 Urine WBC (Auto) < 1.0 /HPF (0.0-6.0) 07/22/18 20:09 Urine RBC (Auto) 2.0 /HPF (0.0-6.0) 07/22/18 20:09 U Epithel Cells (Auto) < 1.0 /HPF (0-13.0) 07/22/18 20:09 Urine Mucus Few /HPF 07/22/18 20:09 Urine Opiates Screen Presumptive negative 07/22/18 20:09 Urine Methadone Screen Presumptive negative 07/22/18 20:09 Ur Barbiturates Screen Presumptive negative 07/22/18 20:09 Ur Phencyclidine Scrn Presumptive negative 07/22/18 20:09 Ur Amphetamines Screen Presumptive negative 07/22/18 20:09 U Benzodiazepines Scrn Presumptive negative 07/22/18 20:09 Urine Cocaine Screen Presumptive positive 07/22/18 20:09 U Marijuana (THC) Screen Presumptive negative 07/22/18 20:09 Drugs of Abuse Note Disclamer 07/22/18 20:09 Plasma/Serum Alcohol < 0.01 % (0-0.07) 07/22/18 18:08
--- NOTE | 2018-07-23 22:42 | Cat Scan Report ---
PROCEDURE: CT angiogram chest with contrast. TECHNIQUE: Computerized tomographic angiography of the chest was performed after the IV injection of iodinated nonionic contrast including image processing. The image data was postprocessed using 2-di mensional multiplanar reformatted (MPR) and 3-dimensional (MIP and/or volume rendered) techniques. Au tomated exposure control, adjustment of mA and/or kV according to patient size, or iterative reconstr uction dose optimization techniques were utilized. CT DOSE LENGTH PRODUCT: 296.68 mGycm HISTORY: elevated d dimer/ evaluate for PE COMPARISONS: None. FINDINGS: The trachea and central bronchi appear normal. The lungs are clear and well-expanded. There are no si gns of pneumonia. There are no pleural effusions. The thoracic aorta has a normal caliber without ashley dence of dissection. The pulmonary arteries enhance normally. There are no filling defects to indicat e pulmonary embolism. There is no mediastinal adenopathy. The heart size is normal. The thoracic skel eton appears intact. IMPRESSION: Normal study. This document is electronically signed by Osito Mcknight MD., July 23 2018 10:40:00 PM ET
[2018-07-24] MEDS ORDERED: LEXISCAN IV ONE (10:54)
[2018-07-24] MEDS: NORVASC PO SCH (13:04)
[2018-07-24] MEDS: ECOTRIN PO SCH (13:04)
[2018-07-24 13:05] VITALS: BP 136/67
[2018-07-24] MEDS: LOVENOX SUB-Q SCH (13:06)
[2018-07-24] MEDS: SODIUM CHLORIDE FLUSH SYRINGE 10 ML IV SCH (13:06)
--- NOTE | 2018-07-24 13:13 | Progress Note ---
Assessment and Plan S/p lexiscan MPI stress test which was negative. Await echocardiogram. No arrhythmias noted on telemetry. Pending echo is unremarkable, pt may discharge home from cardiology standpoint and recommend follow up in our office with Dr. Corona within 1-2 weeks of hospital discharge ([phone]). If cardiac workup is unremarkable, neurologic workup will be considered as outpatient especially with accompanying incontinence described by the patient. Toxicology is positive for cocaine. The patient has been seen in conjunction with Dr. Corona who agrees with the assessment and plan of care. - Patient Problems (1) Recurrent syncope Current Visit: Yes Status: Acute (2) Elevated d-dimer Current Visit: Yes Status: Acute (3) Hypertension Current Visit: Yes Status: Chronic Qualifiers: Hypertension type: essential hypertension Qualified Code(s): I10 - Essenti al (primary) hypertension (4) HIV disease Current Visit: Yes Status: Chronic Subjective Date of service: 07/24/18 Principal diagnosis: syncope Interval history: s/p stress test today. no current complaints. Objective Last Vital Signs Temp 97.6 F 07/24/18 03:29 Pulse 62 07/24/18 13:04 Resp 18 07/24/18 10:00 BP 136/67 07/24/18 13:04 Pulse Ox 98 07/24/18 10:00 - Physical Examination General: No Apparent Distress HEENT: Positive: EOMI, Normocephaly, Mucus Membranes Moist Neck: Positive: neck supple, trachea midline Cardiac: Positive: Reg Rate and Rhythm, S1/S2 Lungs: Positive: Decreased Breath Sounds Neuro: Positive: Grossly Intact Abdomen: Positive: Soft, Active Bowel Sounds. Negative: Tender Skin: Positive: Clear. Negative: Rash Musculoskeletal: Normal Range of Motion Extremities: Present: normal. Absent: edema - Imaging and Cardiology EKG: image reviewed - EKG Sinus rhythms and dysrhythmias: sinus rhythm
--- NOTE | 2018-07-24 15:35 | Discharge Summary ---
Providers - Providers Date of Admission: 07/22/18 22:16 Date of discharge: 07/24/18 Attending physician: ANJU MONGE 07/22/18 Consult to Cardiac Rehabilitation [CONS] Routine Reason For Exam: Phase I 07/22/18 22:43 Consult to Cardiology [CONS] Routine [facility] Reason For Exam: syncope 07/23/18 17:58 Physical Therapy Evaluation and Treat [CONS] Routine Comment: Reason For Exam: recurrent syncope/unsteady gait [facility] Reason for admission: Syncope Condition: Stable Pertinent studies: CT head: No acute abnormality CTA chest; NO PE ECHO:55-60% Lower ext doppler: neg for DVT Stress test; Normal study,EF 86% carotid doppler:Less than 50% stenosis Hospital course: Patient is a 63-year-old female with PMHx of HTN, HIV was admitted through ER with complaint of syncope. Patient had negative syncope w/u , Evaluated by cardiology,had negative stress test and Echo EF 55-60% Symptoms signifiantly improved, Patient had extensive cardiac and neuro work up. Received PT,OT,no new episodes of syncope.Today patient is comfortable,no new complaints, vital signs stable, Physical exam unremarkable. Advised to see private neurologist for further evaluation and management Patient is stable at discharge. Discharge Diagnosis: --Syncope; Patient gives history of recurrent syncopal episodes in the past. No new episodes of syncope since admission, fall precautions Syncope workup in progress, cardiology evaluated, stress test tomorrow Orthostats, physical therapy occupational therapy --Elevated d-dimer is; CTA chest/lower extremity venous Doppler To rule out PE and DVT Continue supportive care --Ongoing tobacco use; smoking cessation nicotine patch as needed --History of alcohol use; strongly advised to quit alcohol intake Monitor for any withdrawal symptoms consider CIWA protocol as needed Disposition: DC-01 TO HOME OR SELFCARE Time spent for discharge: 32 min Core Measure Documentation - Palliative Care Palliative Care/ Comfort Measures: Not Applicable - Core Measures Any of the following diagnoses?: none Exam - Constitutional Vitals: Temp Pulse Resp BP Pulse Ox 97.6 F 62 18 136/67 98 07/24/18 03:29 07/24/18 13:04 07/24/18 10:00 07/24/18 13:04 07/24/18 10:00 General appearance: Present: no acute distress, well-nourished - EENT Eyes: Present: PERRL, EOM intact - Neck Neck: Present: supple, normal ROM - Respiratory Respiratory effort: normal Respiratory: bilateral: diminished, negative: rales, rhonchi, wheezing - Cardiovascular Rhythm: regular Heart Sounds: Present: S1 & S2 - Extremities Extremities: no ischemia, No edema - Abdominal General gastrointestinal: Present: soft, non-tender, non-distended, normal bowel sounds - Integumentary Integumentary: Present: clear, warm - Musculoskeletal Musculoskeletal: strength equal bilaterally, generalized weakness - Psychiatric Psychiatric: appropriate mood/affect, cooperative - Neurologic Neurologic: moves all extremities Plan Activity: advance as tolerated, fall precautions Diet: other (cardiac diet) Special Instructions: smoking cessation Additional Instructions: Fall precautions. Advised to seek private neurologist for further evaluation and management of recurrent syncope. Do not drive or operate heavy machinery if you have recurrent episodes of syncope/dizziness. Advised to quit tobacco use, recreational drug, cocaine use Follow up with: [facility] PRICILLA [Primary Care Provider] - 3-5 Days KARMEN COPE MD [Staff Physician] - 7 Days OMAR REBOLLAR MD [Staff Physician] - 7 Days Forms: Work/School Release Form Prescriptions: Nicotine [Habitrol] 21 mg TD DAILY #30 patch amLODIPine [Norvasc] 2.5 mg PO QDAY #30 tablet Famotidine [Pepcid] 10 mg PO BID #30 tablet
--- NOTE | 2018-07-24 21:14 | Vascular Lab Report ---
PROCEDURE: VL VENOUS DUPLEX LE BILAT TECHNIQUE: Duplex Doppler ultrasound of the PROCEDURE: US BILATERAL LOWER EXTREMITY VENOUS DUPLEX DO PPLER TECHNIQUE: Duplex Doppler ultrasound of the BILATERAL common and superficial femoral, popliteal, pos terior tibial and proximal deep femoral and greater saphenous veins was attempted. Logan scale imaging with and without compression, spectral waveform analysis with and without augmentation, and color fl ow Doppler were employed. CPT 07193 HISTORY: Elevated d-dimer COMPARISONS: None . FINDINGS: RIGHT LOWER EXTREMITY: Deep Venous Thrombus: None . Soft tissue abnormality: None . Other: None . LEFT LOWER EXTREMITY: Deep Venous Thrombus: None . Soft tissue abnormality: None . Other: None . IMPRESSION: No evidence of deep venous thrombosis bilateral lower extremities. This document is electronically signed by Sky Carl MD., July 24 2018 09:12:52 PM ET
--- NOTE | 2018-07-24 23:27 | Treadmill Report ---
LEXISCAN STRESS TEST REPORT REASON FOR STUDY: Syncope. STRESS TEST PROTOCOL: The patient received 0.4 mg of Lexiscan intravenously over 10 seconds. Technetium-99m tetrofosmin was subsequently injected. Baseline EKG, sinus bradycardia. Lexiscan EKG, no ischemic changes. No chest pain. No arrhythmias. IMPRESSION: Electrocardiographically negative stress test. Nuclear imaging report to follow. JOB# [id number] GLORIA/NTS
--- NOTE | 2018-07-25 01:26 | Treadmill Report ---
THALLIUM REPORT REASON FOR STUDY: Syncope. IMAGING PROTOCOL: The patient received Tc-99m Tetrofosmin for stress and rest imaging. Imaging for all procedures was completed 30-90 minutes following the initial injection of Technetium 99m Tetrofosmin. SPECT imaging in the 180 degree arc was performed in the right anterior oblique projection. Computerized reconstruction of the images was performed for analysis. NUCLEAR IMAGING RESULTS: Normal left ventricular cavity size with no change from stress to rest. Distribution of radionuclide within the left ventricle revealed normal myocardial photon uptake with stress and rest imaging. Gated SPECT imaging revealed normal hyperdynamic global left ventricular systolic function with no significant wall motion abnormalities. The calculated left ventricular ejection fraction is 86%. IMPRESSION: Normal stress and rest myocardial perfusion imaging. Hyperdynamic global left ventricular systolic function with no significant wall motion abnormalities, EF 86%. No evidence of significant stress-induced ischemia or prior infarction. [facility]# [id number] GLORIA/NTS
--- NOTE | 2018-07-25 01:30 | Treadmill Report ---
THALLIUM REPORT REASON FOR STUDY: Syncope. IMAGING PROTOCOL: The patient received Tc-99m tetrofosmin for rest and stress imaging. Imaging for all procedures was completed 30-90 minutes following the initial injection of Technetium 99m Tetrofosmin. SPECT imaging in the 180 degree arc was performed in the right anterior oblique projection. Computerized reconstruction of the images was performed for analysis. NUCLEAR IMAGING RESULTS: Normal left ventricular cavity size with no change from stress to rest. Distribution of radionuclide within the left ventricle revealed a large area of photo-induction involving the inferior wall. The degree of photo-induction is moderate to severe. Rest imaging does not show any significant improvement in this defect. There is also a small area of photo-induction involving the anteroseptal wall. The degree of photo-induction is moderate. Rest imaging does not show any significant improvement in this defect. In addition, there is a small area of photo-induction involving the inferolateral wall. The degree of photo-induction is moderate. Rest imaging showed partial improvement in this defect. Gated SPECT imaging revealed severe global left ventricular hypokinesis. The calculated left ventricular ejection fraction is 23%. IMPRESSION: Large fixed inferior defect. Small fixed anteroseptal defect. Small, partially reversible inferolateral defect. Severe global left ventricular hypokinesis. EF 23%. These findings suggest prior infarction in the right coronary artery territory. In addition, there is suggestion of a small area of prior infarction in the left anterior descending coronary artery territory. There is also suggestion of a small area of prior infarction with minimal to mild residual ischemia in the left circumflex coronary artery territory. A cardiomyopathic process may also be present in this patient. JOB# [id number] GLORIA/NTS
== END 2018-07-24 18:41 | disposition home or self-care (01) | DRG 312 ==
LOC: ED 17:17 → 4A 22:16
PROVIDERS: ADMIT Internal Medicine; ATTEND Internal Medicine
DX: R55 Syncope and collapse (principal); B20 Human immunodeficiency virus [HIV] disease; F17.210 Nicotine dependence, cigarettes, uncomplicated; I10 Essential (primary) hypertension; Z79.82 Long term (current) use of aspirin; Z79.899 Other long term (current) drug therapy; Z71.6 Tobacco abuse counseling
CPT/HCPCS: 36415; 70450; 71275; 78452; 80048; 80053; 80307; 80320; 81001; 82550; 82553; 82962; 83735; 83880; 84484; 85007; 85025; 85379; 85610; 93005; 93010; 93017; 93306; 93880; 93970; 99406; G0378; A9502; G0480; J1650; J2785; Q9967